=== PATIENT | male | born 1945 | race Caucasian/White ===

== ENCOUNTER 2022-05-07 13:16 | Outpatient (CLI) | payer MEDICARE, BC, SELFPAY ==
[2022-05-07 13:25] VITALS: BP 124/66; PULSE 69; RESP 16; O2SAT 100
[2022-05-07] MEDS: TETRACAINE 0.5% OPHTH 1 DROP EYE-LEFT ×3 (13:31→15:08)
[2022-05-07] MEDS: BRIMONIDINE TARTRATE 0.2% OPHTH 1 DROP EYE-LEFT ×2 (13:32→15:15)
--- NOTE | 2022-05-07 19:30 | P.PCN_ITS ---
Procedure Note Date Seen: 05/07/22 Will [facility] bill your pro fee for this procedure?: No Procedure: yag pc os 37 pulses at 2.2 mjuoules no complications Surgeon: Fredo Bradford MD
--- NOTE | 2022-05-07 19:30 | PM.PROC ---
Procedure Note Date Seen: 05/07/22 Will [facility] bill your pro fee for this procedure?: No Procedure: yag pc os 37 pulses at 2.2 mjuoules no complications Surgeon: Fredo Bradford MD
== END 2022-05-07 15:17 | disposition home or self-care (01) ==
PROVIDERS: Visit Provider Ophthalmology
DX: H26.9 Unspecified cataract (principal)
CPT/HCPCS: 66821; A9270